=== PATIENT | female | born 2000 | race Caucasian/White ===

== ENCOUNTER 2022-08-17 23:30 | Emergency (ER) | payer SELFPAY ==
[2022-08-17 23:39] VITALS: BP 101/68; PULSE 73; RESP 16; TEMP 36.8; O2SAT 97
--- NOTE | 2022-08-18 01:29 | W.ED.WOUNDLC ---
HPI - Wound/Laceration General: Chief Complaint: Wound/Laceration Stated Complaint: eye injury Time Seen by Provider: 08/18/22 00:08 Source: patient Mode of arrival: ambulatory Limitations: no limitations History of Present Illness: Patient presents to the emergency department today for evaluation treatment of injury sustained to the left lower eyelid. Patient states that this evening she was sitting on her futon bed and her dog jumped to get on the bed as well. She states he accidentally impacted her face and cut her left eyelid with his foot. Patient denies any visual changes. She denies seeing any spots or having any loss of visual martin. Patient indicates the only difficulty with seeing is the swelling of her eyelid occluding her eye. Review of Systems General: Reports: 10 or more systems reviewed and unremarkable except in HPI and below Eyes: Reports: eye discomfort and other (Tearing, eyelid swelling, eyelid laceration); Denies: change in vision, blurry vision, blind spots, eye redness or floaters Physical Exam Const: COMMON NORMALS: no acute distress, patient oriented x3 and alert HENMT: COMMON NORMALS: normocephalic, atraumatic, hearing grossly normal bilaterally and moist oral mucous membranes HEAD & SCALP: normocephalic and atraumatic Eye: COMMON NORMALS: Equal, round and reactive pupils present, EOMs intact bilaterally and conjunctivae normal VISUAL ACUITY: Yes acuity normal, Yes visual acuity right eye Visual acuity (R) = 20/: 20 and Yes visual acuity left eye Visual acuity (L) = 20/: 20 ALIGNMENT: Yes alignment normal PERIORBITAL: periorbital findings abnormal (lower lid laceration ) positive left CONJUNCTIVA: Yes conjunctivae normal PUPIL: Yes Equal, round and reactive pupils present OTHER: Patient has a linear laceration across her left lower eyelid approximately 1-1/2 cm in length. There is no wound edge approximation. No active bleeding. Lower lid is swollen and bruising is starting to appear. No signs of any medial eye injury or lacrimal injury. Laceration is not through and through. EYE IMAGES: 1. Linear laceration approximately 1.75 cm without wound edge separation and without full-thickness Neck/C-Spine: COMMON NORMALS: no JVD Lymph: LYMPHATIC: no lymphadenopathy noted Resp: COMMON NORMALS: normal respiratory effort, No retractions and No use of accessory muscles Cardio: COMMON NORMALS: no JVD, regular rate and regular rhythm RATE: regular rate RHYTHM: regular rhythm GI: COMMON NORMALS: Normal to inspection, nondistended, normoactive bowel sounds present : COMMON NORMALS: Yes no CVA tenderness BLADDER/KIDNEY EXAM: Yes no CVA tenderness Back/Pelvis: COMMON NORMALS: no CVA tenderness and thoraco-lumbar ROM normal Extremity: COMMON NORMALS: normal to inspection, full ROM and capillary refill normal Neuro: COMMON NORMALS: patient oriented x3 SENSORIUM/ORIENTATION: Yes alert Psych: COMMON NORMALS: mental status grossly normal, cooperative, normal affect and activity/motor behavior normal Skin: COMMON NORMALS: negative for no wounds Course Vital Signs: Vital signs: Vital Signs Temperature 98.3 F 08/17/22 23:39 Pulse Rate 73 08/17/22 23:39 Respiratory Rate 16 08/17/22 23:39 Blood Pressure 101/68 08/17/22 23:39 Pulse Oximetry 97 08/17/22 23:39 Oxygen Delivery Me thod 08/17/22 23:39 MDM - Wound/Laceration Medical Decision Making Patient presented to the ER with laceration to the left lower eyelid. Her initial examination showed a linear laceration without wound edge separation with motion of the eyelid. It is not through and through and the patient showed no signs of injury to the cornea or conjunctive a or lacrimal area. Patient's wound was cleaned up here in the ER and I did get a second opinion from Dr. Hunt. He reached out and spoke with Dr. Crespo with ophthalmology who indicated patient could be treated with Maxitrol antibiotic ointment and follow-up in his clinic on Saturday. I discussed this with the patient and also went over generalized wound care. Patient can expect continued swelling and bruising over the next couple of days with settling into the lower orbit. She can apply ice to the eye for 15 to 20 minutes at a time. Contact information for the clinic is on her discharge paperwork however, I did submit a request for case management to assist in referring the patient to ophthalmology. Patient was given strict return precautions for any change in her vision including loss of visual field or floaters. Differential Diagnosis Likely laceration (Full-thickness, superficial, contusion) and abrasion Discharge Plan Discharge Patient Disposition: Home Clinical Impression: Eyelid laceration, left Condition: Stable Prescriptions: New neomycin-polymyxin B-dexameth [Maxitrol] 3.5 mg/g-10,000 unit/g-0.1 % ointment 1 applic ophthalmic (eye) QID Qty: 3.5 0RF Rx Instructions: apply to left eyelid wound every 6 hrs Discharge Orders: Discharge ED (Routine); Ordered 08/18/22 Ordered By: Montse Lee Referrals: Lencho Crespo [Physician] - 1-3 days (Follow up with Dr Crespo on SATURDAY) Discharge Diet: Usual diet Discharge Activity: Resume usual activity Patient Instructions: Facial Laceration (ED) Activity Restrictions/Additional Instructions: After speaking to the bilingual nanny on-call (Dr Lencho Crespo), he is recommending a certain antibiotic prescription eye ointment to be placed every 6 hours while healing. He would also like to have you seen in his clinic on Saturday for follow-up. You should be getting contacted regarding this follow-up appointment. Wash the wound at least once a day with warm water and a mild soap. We recommend tapping and patting the area rather than rubbing. You may notice worsening swelling and bruising over the next few days including settling down into your lower eye. This is very common with bruising on the face and does not indicate any additional injuries necessarily. You can apply an ice pack to your eye for 15 to 20 minutes, multiple times throughout the day for comfort as well. Coding Level of Care Code ED Clinical Biostatistics Director for [facility] Moctezuma
--- NOTE | 2022-08-20 07:46 | DCPLANNER ---
Addendum entered by Sania Ramos 08/23/22 09:29: creative project manager called the office of Dr. Crespo to confirm that patient had been seen. creative project manager was told that clinic has not been able to reach patient. Original Note: creative project manager had message to refer patient to Dr. Crespo. creative project manager faxed patients information to the office of Dr. Crespo. Patients information will be printed and reviewed. Clinic will call patient with appointment information.
== END 2022-08-18 01:00 | disposition home or self-care (01) ==
PROVIDERS: Emergency Provider Physician Assistant
DX: S01.112A Laceration without foreign body of left eyelid and periocular area, initial encounter (principal); W54.8XXA Other contact with dog, initial encounter
CPT/HCPCS: 99283